=== PATIENT | male | born 1990 | race Caucasian/White ===

== ENCOUNTER 2017-12-03 19:12 | Emergency (ER) | payer OTHER ==
[~2017-12-03] VITALS: Ht 152.4 cm; Wt 72.9 kg
[2017-12-03 19:13] VITALS: BP 125/78
== END 2017-12-03 20:56 | disposition home or self-care (01) ==
LOC: ED 20:40
DX: G89.11 Acute pain due to trauma (principal); M25.561 Pain in right knee; Y92.828 Other wilderness area as the place of occurrence of the external cause; W17.89XA Other fall from one level to another, initial encounter; Y99.8 Other external cause status; Y93.31 Activity, mountain climbing, rock climbing and wall climbing
CPT/HCPCS: 99284